=== PATIENT | male | born 1935 | race Caucasian/White ===

== ENCOUNTER 2017-06-29 16:02 | Emergency (ER) | payer MEDICARE, BC ==
[2017-06-29 16:51] LABS: HEMATOCRIT 38.9 % (37.9-51.0); HEMOGLOBIN 12.5 g/dL (13.5-17.0); MEAN CORPUSCULAR HEMOGLOBIN 27.6 pg (27.0-33.4); MEAN CORPUSCULAR HGB CONC 32.2 g/dL (32.0-36.0); MEAN CORPUSCULAR VOLUME 86 fl (80-97); PLATELET COUNT 107 10^3/uL (150-450); RED BLOOD COUNT 4.54 10^6/uL (4.35-5.55); RED CELL DISTRIBUTION WIDTH 16.5 % (11.5-14.0); WHITE BLOOD COUNT 9.9 10^3/uL (4.0-10.5)
[2017-06-29 16:55] LABS: VENOUS BLOOD BASE EXCESS -1.9 mmol/L; VENOUS BLOOD HCO3 22.2 mmol/L (20-32); VENOUS BLOOD PCO2 35.6 mmHg (35-63); VENOUS BLOOD PH 7.41 (7.30-7.42)
[2017-06-29 16:59] LABS: PROTHROMBIN TIME 26.5 SEC (11.4-15.4)
[2017-06-29 17:06] LABS: ALANINE AMINOTRANSFERASE 32 U/L (21-72); ALBUMIN 3.6 g/dL (3.5-5.0); ALKALINE PHOSPHATASE 74 U/L (38-126); ANION GAP 10 (5-19); ASPARTATE AMINO TRANSFERASE 35 U/L (17-59); BILIRUBIN,DIRECT 0.3 mg/dL (0.0-0.4); BILIRUBIN,TOTAL 1.4 mg/dL (0.2-1.3); BLOOD UREA NITROGEN 34 mg/dL (7-20); CALCIUM 8.9 mg/dL (8.4-10.2); CARBON DIOXIDE 24 mmol/L (22-30); CHLORIDE 108 mmol/L (98-107); GLUCOSE 133 mg/dL (75-110); LIPASE 113.9 U/L (23-300); POTASSIUM 3.4 mmol/L (3.6-5.0); SODIUM 141.9 mmol/L (137-145); TOTAL PROTEIN 5.8 g/dL (6.3-8.2)
[2017-06-29 17:13] LABS: ABSOLUTE LYMPHOCYTES# (MANUAL) 0.3 10^3/uL (0.5-4.7); ABSOLUTE MONOCYTES # (MANUAL) 0.1 10^3/uL (0.1-1.4); ABSOLUTE NEUTROPHILS# (MANUAL) 9.4 10^3/uL (1.7-8.2); ANISOCYTOSIS 1+; BAND NEUTROPHILS % (MANUAL) 3 % (3-5); BASOPHILS % (MANUAL) 1 % (0-2); EOSINOPHILS % (MANUAL) 0 % (0-6); HYPOCHROMASIA SLIGHT; LYMPHOCYTES % (MANUAL) 3 % (13-45); MONOCYTES % (MANUAL) 1 % (3-13); PLATELET COMMENT DECREASED; POLYCHROMASIA SLIGHT; SEGMENTED NEUTROPHILS % (MAN) 92 % (42-78); TOTAL CELLS COUNTED 100; TOXIC GRANULATION 1+; TOXIC VACUOLATION PRESENT
[2017-06-29 17:15] LABS: APPEARANCE,URINE CLOUDY; BILIRUBIN,URINE NEGATIVE (NEGATIVE); COLOR,URINE YELLOW; GLUCOSE, URINE NEGATIVE (NEGATIVE); KETONES,URINE NEGATIVE (NEGATIVE); LEUKOCYTE ESTERASE,URINE LARGE (NEGATIVE); NITRITE,URINE NEGATIVE (NEGATIVE); PROTEIN,URINE 30 mg/dL (NEGATIVE); URINE SPECIFIC GRAVITY 1.012; UROBILINOGEN,URINE NEGATIVE mg/dL (<2.0)
--- NOTE | 2017-06-29 17:35 | RADIOLOGY REPORT (SQ) ---
EXAM DESCRIPTION: CHEST PA/LAT COMPLETED DATE/TIME: 06/29/2017 5:20 pm REASON FOR STUDY: sob COMPARISON: Chest x-ray from [facility] dated 05/09/[address] dated 2. EXAM PARAMETERS: NUMBER OF VIEWS: two views TECHNIQUE: Digital Frontal and Lateral radiographic views of the chest acquired. RADIATION DOSE: NA LIMITATIONS: none FINDINGS: LUNGS AND PLEURA: Prominent interstitial densities, particularly in the left base. No lar ge pleural effusion. On the lateral view there is soft tissue in the posterior costophrenic sulcus. 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 MEDIASTINUM AND HILAR STRUCTURES: No masses or contour abnormalities. HEART AND VASCULAR STRUCTURES: Heart normal size. No evidence for failure. BONES: No acute findings. HARDWARE: Sternotomy wires and valvular prosthesis. External pacemaker wires. OTHER: No other significant finding. IMPRESSION: CHRONIC CHANGES ABOVE. CHRONIC INTERSTITIAL SCARRING. NO DEFINITE ACUTE FINDINGS. TECHNICAL DOCUMENTATION: JOB ID: [id number] [id number]- All Rights Reserved Reading location - IP/workstation name: [email or web address]
[2017-06-29] MEDS ORDERED: CEFTRIAXONE 1 GM/D5W RTU 1 GM/50 ML RTUPB IV ONE (17:51)
--- NOTE | 2017-06-29 18:17 | ER Document Report ---
ED General - General Chief Complaint: Nausea/Vomiting/Diarrhea Stated Complaint: WEAKNESS Time Seen by Provider: 06/29/17 16:06 TRAVEL OUTSIDE OF THE [place] IN LAST 30 DAYS: No - HPI Patient complains to provider of: Fever nausea vomiting diarrhea weakness Notes: Patient coming in with above-stated symptoms. Patient states started after he had lunch today. Patient otherwise states last 4024 hours he has felt fine. No chest pain abdominal pain. Patient resting comfortably upon my evaluation states that he feels better. Patient was given a gram of Tylenol by EMS patient to have a fever of 101. States he did receive flu vaccination this year denies any sick contacts recent antibiotics. Denies other complaints - Related Data Allergies/Adverse Reactions: gentamicin [Gentamicin] Allergy (Verified 04/26/11 10:05) Penicillins Allergy (Verified 04/26/11 10:05) Past Medical History - Social History Smoking Status: Never Smoker Chew tobacco use (# tins/day): No Frequency of alcohol use: None Drug Abuse: None Family History: Reviewed & Not Pertinent Patient has suicidal ideation: No Patient has homicidal ideation: No - Past Medical History Cardiac Medical History: Reports: Hx Hypercholesterolemia, Hx Hypertension Pulmonary Medical History: Reports: Hx Bronchitis Renal/ Medical History: Denies: Hx Peritoneal Dialysis - Immunizations Hx Diphtheria, Pertussis, Tetanus Vaccination: No Review of Systems - Review of Systems Constitutional: Fever EENT: No symptoms reported Cardiovascular: No symptoms reported Respiratory: No symptoms reported Gastrointestinal: Diarrhea, Nausea, Vomiting Genitourinary: No symptoms reported Male Genitourinary: No symptoms reported Musculoskeletal: No symptoms reported Skin: No symptoms reported Hematologic/Lymphatic: No symptoms reported Neurological/Psychological: No symptoms reported -: Yes All other systems reviewed and negative Physical Exam - Vital signs Vitals: Temp Resp BP Pulse Ox 99.4 F 24 H 147/64 H 94 06/29/17 16:27 06/29/17 16:27 06/29/17 16:27 06/29/17 16:27 Interpretation: Normal - General General appearance: Appears well, Alert - HEENT Head: Normocephalic, Atraumatic Eyes: Normal Pupils: PERRL - Respiratory Respiratory status: No respiratory distress Chest status: Nontender Breath sounds: Normal Chest palpation: Normal - Cardiovascular Rhythm: Regular Heart sounds: Normal auscultation Murmur: No - Abdominal Inspection: Normal Distension: No distension Bowel sounds: Normal Tenderness: Nontender Organomegaly: No organomegaly - Back Back: Normal, Nontender - Extremities General upper extremity: Normal inspection, Nontender, Normal color, Normal ROM , Normal temperature General lower extremity: Normal inspection, Nontender, Normal color, Normal ROM , Normal temperature, Normal weight bearing. No: Javier's sign - Neurological Neuro grossly intact: Yes Cognition: Normal Orientation: AAOx4 [place] Coma Scale Eye Opening: Spontaneous [place] Coma Scale Verbal: Oriented [place] Coma Scale Motor: Obeys Commands [place] Coma Scale Total: 15 Speech: Normal Motor strength normal: LUE, RUE, LLE, RLE Sensory: Normal - Psychological Associated symptoms: Normal affect, Normal mood - Skin Skin Temperature: Warm Skin Moisture: Dry Skin Color: Normal Course - Re-evaluation Re-evalutation: 06/29/17 22:38 Laboratory studies showed that patient had a urinary tract infection. Patient otherwise feeling better after IV fluids afebrile. Patient was given a dose of Rocephin tolerated well. At this time patient was to be a good candidate for outpatient management. Still possible underlying viral etiology for some of the nausea vomiting diarrhea. Abdomen still nontender no rebound or guarding. 06/29/17 22:39 Family agrees with plan of discharge home. - Vital Signs Vital signs: Temp Pulse Resp BP Pulse Ox 98.9 F 18 131/74 H 95 06/29/17 19:19 06/29/17 19:19 06/29/17 19:19 06/29/17 19:19 - Laboratory Result Diagrams: 06/29/17 16:30 06/29/17 16:30 Laboratory results interpreted by me: 06/29/17 06/29/17 06/29/17 16:30 16:30 16:30 Hgb 12.5 L RDW 16.5 H Plt Count 107 L Seg Neuts % (Manual) 92 H Lymphocytes % (Manual) 3 L Monocytes % (Manual) 1 L Abs Neuts (Manual) 9.4 H Abs Lymphs (Manual) 0.3 L PT 26.5 H Potassium 3.4 L Chloride 108 H BUN 34 H Est GFR (Non-Af Amer) 58 L Glucose 133 H POC Glucose Total Bilirubin 1.4 H Total Protein 5.8 L Urine Protein Urine Blood Ur Leukocyte Esterase 06/29/17 06/29/17 16:41 16:48 Hgb RDW Plt Count Seg Neuts % (Manual) Lymphocytes % (Manual) Monocytes % (Manual) Abs Neuts (Manual) Abs Lymphs (Manual) PT Potassium Chloride BUN Est GFR (Non-Af Amer) Glucose POC Glucose 134 H Total Bilirubin Total Protein Urine Protein 30 H Urine Blood LARGE H Ur Leukocyte Esterase LARGE H Discharge - Discharge Clinical Impression: Nausea vomiting and diarrhea Urinary tract infection Qualifiers: Urinary tract infection type: acute cystitis Hematuria presence: with hematuria Qualified Code(s): N30.01 - Acute cystitis with hematuria Fever Qualifiers: Fever type: unspecified Qualified Code(s): R50.9 - Fever, unspecified Condition: Good Disposition: HOME, SELF-CARE Instructions: Cephalexin ([facility]), Diarrhea, Nonspecific ([facility]), Fever ([facility]), Urinary Tract Infection ([facility]), Vomiting ([facility]) Additional Instructions: Your laboratory studies today 2 signs of urinary tract infection. This may be the reason why you are having some your symptoms as weakness also because of your fever. We will start you on antibiotic called Rocephin here in the ER and prescribed the antibiotics Keflex. Rocephin will last for 24 hours he would not need any further antibiotics until tomorrow. Please be aware that all antibiotics will affect your Coumadin level or your INR because of this I would highly recommend following up with your doctor for further evaluation next week Tuesday. Return to ER if symptoms worsen please drink plenty water stay hydrated please rest. Prescriptions: Cephalexin Monohydrate [Keflex 500 mg Capsule] 500 mg PO Q6H 7 Days capsule Ondansetron [Zofran Odt] 4 mg PO Q6 PRN #30 tab.rapdis PRN Reason: For Nausea/Vomiting Referrals: JUDSON RUFFIN PA-C [Primary Care Provider] - Follow up in 3-5 days
[2017-06-29] MEDS ORDERED: ONDANSETRON ODT 4 MG TAB (6 TAB/ER DISP) PO PRN (18:35)
[2017-06-29] MEDS ORDERED: CEFTRIAXONE SODIUM 1,000 MG in NORMAL SALINE 100 ML IV ONE (18:45)
[2017-06-29 19:54] VITALS: BP 131/74
--- NOTE | 2017-06-29 23:47 | EKG REPORT ---
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 DISC USSED WITH DR PARSONS. ST ELEVATION IN AVR, V1,2 WAS SAID TO BE PRE-EXISTING, PT NOT HAVING CHEST PA INS. PT UNDER CARE OF DR GRAY IN [facility] : Confirmed by: Michael Zhang MD 29-Jun-2017 18:54:32
== END 2017-06-29 19:58 | disposition home or self-care (01) ==
LOC: ER 16:02
DX: N30.01 Acute cystitis with hematuria (principal); R11.2 Nausea with vomiting, unspecified; R19.7 Diarrhea, unspecified; R50.9 Fever, unspecified; R53.1 Weakness
CPT/HCPCS: 93005; 99285; 96361; 96374; 96375; 36415; 87040; 87086; 82962; 83690; 83735; 85025; 85610; 87088; 80053; 81001; 84484; 87186; 82803; 83605; 71046; 93010; J0696

== ENCOUNTER → 2018-05-02 | Outpatient (CLI) | payer MEDICARE, BC ==
[2018-05-02 11:38] LABS: PROTHROMBIN TIME 13.7 SEC (11.4-15.4)
== END ==
LOC: OD 10:43
PROVIDERS: ATTEND Dentist Oral and Maxillofacial Surgery
DX: I48.91 Unspecified atrial fibrillation (principal)
CPT/HCPCS: 36415; 85610

== ENCOUNTER 2019-11-25 10:13 | Emergency (ER) | payer MEDICARE, BC ==
--- NOTE | 2019-11-25 10:21 | ER Document Report ---
ED Medical Screen (RME) - General Chief Complaint: Fall Injury Stated Complaint: FALL Time Seen by Provider: 11/25/19 10:18 Primary Care Provider: OBI WILLS DDS [Primary Care Provider] - Follow up as needed Mode of Arrival: Medic Information source: Patient Notes: 84-year-old male presented to ED for fall hitting head injury and head neck on blood thinners. Patient is alert and oriented answering questions appropriately. He did come by EMS. Will get head and neck CT and basic labs. I have greeted and performed a rapid initial assessment of this patient. A comprehensive ED assessment and evaluation of the patient, analysis of test results and completion of medical decision making process will be conducted by an additional ED providers. TRAVEL OUTSIDE OF THE [place] IN LAST 30 DAYS: No - Related Data Allergies/Adverse Reactions: gentamicin [Gentamicin] Allergy (Verified 04/26/11 10:05) Penicillins Allergy (Verified 04/26/11 10:05) Past Medical History - Past Medical History Cardiac Medical History: Reports: Hx Hypercholesterolemia, Hx Hypertension Pulmonary Medical History: Reports: Hx Bronchitis Renal/ Medical History: Denies: Hx Peritoneal Dialysis - Immunizations Hx Diphtheria, Pertussis, Tetanus Vaccination: No Doctor's Discharge - Discharge Referrals: OBI WILLS DDS [Primary Care Provider] - Follow up as needed
[2019-11-25 10:47] LABS: ABSOLUTE EOSINOPHILS # (AUTO) 0.2 10^3/uL (0.0-0.6); ABSOLUTE LYMPHOCYTES (AUTO) 0.6 10^3/uL (0.5-4.7); ABSOLUTE MONOCYTES (AUTO) 0.5 10^3/uL (0.1-1.4); ABSOLUTE NEUT (AUTO) 3.3 10^3/uL (1.7-8.2); BASOPHILS % (AUTO) 0.9 % (0-2); EOSINOPHILS % (AUTO) 3.6 % (0-6); HEMATOCRIT 35.7 % (37.9-51.0); HEMOGLOBIN 11.6 g/dL (13.5-17.0); LYMPHOCYTES % (AUTO) 13.4 % (13-45); MEAN CORPUSCULAR HEMOGLOBIN 26.6 pg (27.0-33.4); MEAN CORPUSCULAR HGB CONC 32.5 g/dL (32.0-36.0); MEAN CORPUSCULAR VOLUME 82 fl (80-97); MONOCYTES % (AUTO) 10.7 % (3-13); PLATELET COUNT 140 10^3/uL (150-450); RED BLOOD COUNT 4.35 10^6/uL (4.35-5.55); RED CELL DISTRIBUTION WIDTH 18.5 % (11.5-14.0); SEGMENTED NEUTROPHILS % (AUTO) 71.4 % (42-78); TOTAL CELLS COUNTED % (AUTO) 100 %; WHITE BLOOD COUNT 4.6 10^3/uL (4.0-10.5)
[2019-11-25 10:48] LABS: INTERNATIONAL RATION (INR) 2.22; PROTHROMBIN TIME 24.6 SEC (11.4-15.4)
[2019-11-25 10:49] LABS: PARTIAL THROMBOPLASTIN TIME 39.4 SEC (23.5-35.8)
[2019-11-25 10:59] LABS: ALBUMIN 3.8 g/dL (3.5-5.0); ALKALINE PHOSPHATASE 60 U/L (38-126); ANION GAP 6 (5-19); ASPARTATE AMINO TRANSFERASE 25 U/L (17-59); BILIRUBIN,TOTAL 0.8 mg/dL (0.2-1.3); BLOOD UREA NITROGEN 26 mg/dL (7-20); CALCIUM 8.7 mg/dL (8.4-10.2); CARBON DIOXIDE 25 mmol/L (22-30); CHLORIDE 105 mmol/L (98-107); GLUCOSE 129 mg/dL (75-110); POTASSIUM 4.1 mmol/L (3.6-5.0); TOTAL PROTEIN 6.3 g/dL (6.3-8.2)
--- NOTE | 2019-11-25 11:10 | RADIOLOGY REPORT (SQ) ---
EXAM DESCRIPTION: CT HEAD WITHOUT IMAGES COMPLETED DATE/TIME: 11/25/2019 11:01 am REASON FOR STUDY: fall pain in head and neck on blood thinners COMPARISON: None. TECHNIQUE: Axial images acquired through the brain without intravenous contrast. Images reviewed wi th bone, brain and subdural windows. Additional sagittal and coronal reconstructions were generated. Images stored on PACS. All CT scanners at this facility use dose modulation, iterative reconstruction, and/or weight based d osing when appropriate to reduce radiation dose to as low as reasonably achievable (ALARA). [facility]: Dose Right [facility]: CareDose [facility]: Dose Right [facility]: Teradose 4D [facility]: Smart [employer] RADIATION DOSE: CT Rad equipment meets quality standard of care and radiation dose reduction techniq ues were employed. CTDIvol: 53.2 mGy. DLP: 991 mGy-cm.mGy. LIMITATIONS: None. FINDINGS: VENTRICLES: Prominent. CEREBRUM: No masses. No hemorrhage. No midline shift. 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 A reas of low density in the white matter most likely due to chronic micro-vascular ischemic change. N o evidence for acute infarction. CEREBELLUM: No masses. No hemorrhage. No alteration of density. No evidence for acute infarction. EXTRAAXIAL SPACES: Age-related involutional change. No fluid collections. No masses. ORBITS AND GLOBE: No intra- or extraconal masses. Normal contour of globe without masses. CALVARIUM: No fracture. PARANASAL SINUSES: No fluid or mucosal thickening. SOFT TISSUES: No mass or hematoma. OTHER: No other significant finding. IMPRESSION: Chronic ischemic changes. EVIDENCE OF ACUTE STROKE: NO. TECHNICAL DOCUMENTATION: JOB ID: [id number] Quality ID # [id number]: Final reports with documentation of one or more dose reduction techniques (e.g., Au tomated exposure control, adjustment of the mA and/or kV according to patient size, use of iterative reconstruction technique) 2010 [employer]- All Rights Reserved Reading location - IP/workstation name: [email or web address]
--- NOTE | 2019-11-25 11:15 | RADIOLOGY REPORT (SQ) ---
EXAM DESCRIPTION: CT CERVICAL SPINE WITHOUT IMAGES COMPLETED DATE/TIME: 11/25/2019 11:01 am REASON FOR STUDY: fall pain in head and neck on blood thinners COMPARISON: None. TECHNIQUE: Axial images acquired through the cervical spine without intravenous contrast. Images re viewed with lung, soft tissue and bone windows. Reconstructed coronal and sagittal MPR images review ed. Images stored on PACS. All CT scanners at this facility use dose modulation, iterative reconstruction, and/or weight based d osing when appropriate to reduce radiation dose to as low as reasonably achievable (ALARA). [facility]: Dose Right [facility]: CareDose [facility]: Dose Right [facility]: Teradose 4D [facility]: [employer] RADIATION DOSE: CT Rad equipment meets quality standard of care and radiation dose reduction techniq ues were employed. CTDIvol: 9.1 mGy. DLP: 213 mGy-cm. mGy. LIMITATIONS: None. FINDINGS: ALIGNMENT: Anatomic. MINERALIZATION: Normal. VERTEBRAL BODIES: No fractures or dislocation. DISCS: Multilevel disc space narrowing with osteophytes. FACETS, LATERAL MASSES, POSTERIOR ELEMENTS: Facet arthropathy. No fractures. No dislocation. No ac clark findings. HARDWARE: None in the spine. VISUALIZED RIBS: No fractures. LUNG APICES AND SOFT TISSUES: No significant or acute findings. OTHER: No other significant finding. IMPRESSION: CHRONIC DEGENERATIVE CHANGES. NO ACUTE FINDINGS. TECHNICAL DOCUMENTATION: JOB ID: [id number] Quality ID # [id number]: Final reports with documentation of one or more dose reduction techniques (e.g., Au tomated exposure control, adjustment of the mA and/or kV according to patient size, use of iterative reconstruction technique) 2010 [employer]- All Rights Reserved Reading location - IP/workstation name: [email or web address]
[2019-11-25] MEDS ORDERED: LIDOCAINE 2% JELLY 30 ML TUBE TOP ONE (11:57)
[2019-11-25 12:02] LABS: INTERNATIONAL RATION (INR) 2.24; PARTIAL THROMBOPLASTIN TIME 37.5 SEC (23.5-35.8); PROTHROMBIN TIME 24.8 SEC (11.4-15.4)
[2019-11-25 12:05] LABS: CREATINE KINASE 122 U/L (55-170)
[2019-11-25 12:07] LABS: ALCOHOL < 10 mg/dL (NONE DETECTED)
[2019-11-25] MEDS ORDERED: LIDOCAINE 4%/TETRACAINE 0.5%/EPI 0.18% 5 ML TOPICAL SOLN TOP ONE (12:16)
[2019-11-25 12:18] LABS: NT PRO BNP 2580 pg/mL (<450); TROPONIN I < 0.012 ng/mL
--- NOTE | 2019-11-25 12:38 | RADIOLOGY REPORT (SQ) ---
EXAM DESCRIPTION: CHEST SINGLE VIEW IMAGES COMPLETED DATE/TIME: 11/25/2019 12:23 pm REASON FOR STUDY: trauma/fall COMPARISON: Chest x-ray 06/29/2017, 04/26/2011 EXAM PARAMETERS: NUMBER OF VIEWS: One view. TECHNIQUE: Single frontal radiographic view of the chest acquired. RADIATION DOSE: NA LIMITATIONS: None. FINDINGS: LUNGS AND PLEURA: No consolidation, pneumothorax or pleural effusion. MEDIASTINUM AND HILAR STRUCTURES: No masses. Contour normal. HEART AND VASCULAR STRUCTURES: The heart is enlarged. There is no overt vascular congestion. BONES: Remote fractures at the left clavicle and left ribs. HARDWARE: Mediastinotomy wires and cardiac valve prosthesis are present. IMPRESSION: Cardiomegaly. Otherwise, no acute radiographic finding in the chest. TECHNICAL DOCUMENTATION: JOB ID: [id number] [place]-64 2010 [employer]- All Rights Reserved Reading location - IP/workstation name: [email or web address]
--- NOTE | 2019-11-25 13:38 | ER Document Report ---
Entered by BRET MONACO SCRIBE 11/25/19 1201 Acting as scribe for:MARTINA SCHREIBER MD ED General - General Chief Complaint: Fall Injury Stated Complaint: FALL Time Seen by Provider: 11/25/19 10:18 Primary Care Provider: OBI WILLS DDS [ACTIVE STAFF] - Follow up as needed Mode of Arrival: Medic Information source: Patient Notes: This 84 year old male patient presents to the emergency department today with a mechanical fall prior to arrival. Patient states he was bending over reaching for a paper and he fell forward. Patient denies dizziness or loss of consciousness. Patient states he is on blood thinners. Denies neck pain, hip pain, or pain in bilateral UE. TRAVEL OUTSIDE OF THE [place] IN LAST 30 DAYS: No - Related Data Allergies/Adverse Reactions: amiodarone Allergy (Verified 11/25/19 10:22) gentamicin [Gentamicin] Allergy (Verified 11/25/19 10:22) Penicillins Allergy (Verified 11/25/19 10:22) Past Medical History - General Information source: Patient - Social History Smoking Status: Former Smoker Cigarette use (# per day): No Family History: Reviewed & Not Pertinent Patient has homicidal ideation: No - Past Medical History Cardiac Medical History: Reports: Hx Hypercholesterolemia, Hx Hypertension Pulmonary Medical History: Reports: Hx Bronchitis - Immunizations Hx Diphtheria, Pertussis, Tetanus Vaccination: No Review of Systems - Review of Systems Constitutional: No symptoms reported EENT: No symptoms reported Cardiovascular: See HPI. denies: Dizziness Respiratory: No symptoms reported Gastrointestinal: No symptoms reported Genitourinary: No symptoms reported Male Genitourinary: No symptoms reported Musculoskeletal: See HPI, Other - No hip pain. denies: Neck pain Skin: No symptoms reported Hematologic/Lymphatic: No symptoms reported Neurological/Psychological: See HPI. denies: Lost consciousness -: Yes All other systems reviewed and negative Physical Exam - Vital signs Vitals: Temp Pulse Resp BP Pulse Ox 99.1 F 72 20 127/61 H 97 11/25/19 10:22 11/25/19 10:22 11/25/19 10:22 11/25/19 10:22 11/25/19 10:22 - General General appearance: Appears well, Alert - HEENT Eyes: Normal Extraocular movements intact: Yes Pupils: PERRL Notes: Superficial abrasion on forehead 7x4 cm. No active bleeding. Normal ROM of neck and without tenderness. - Respiratory Respiratory status: No respiratory distress Chest status: Nontender Breath sounds: Normal Chest palpation: Normal. No: Wounds - Cardiovascular Rhythm: Regular Heart sounds: Normal auscultation Murmur: No - Abdominal Inspection: Normal, Other - Soft Distension: No distension Bowel sounds: Normal Tenderness: Nontender - Extremities General upper extremity: Normal inspection, Nontender, Normal ROM. No: Edema Notes: Superficial abrasions on knees bilaterally, both 8x3 cm. 5x2 cm linear superficial abrasion on right lower leg. Normal ROM of bilateral lower extremities. Hip is non-tender with palpation and normal ROM. - Neurological Neuro grossly intact: Yes Cognition: Normal Orientation: AAOx4 Speech: Normal Sensory: Normal - Psychological Associated symptoms: Normal affect, Normal mood - Skin Skin Temperature: Warm Skin Moisture: Dry Skin Color: Normal Course - Re-evaluation Re-evalutation: 11/25/19 13:23 Patient resting comfortably not showing any signs of distress at this time. - Vital Signs Vital signs: Temp Pulse Resp BP Pulse Ox 99.1 F 72 20 127/61 H 97 11/25/19 10:22 11/25/19 10:22 11/25/19 10:22 11/25/19 10:22 11/25/19 10:22 11/25/19 13:24 Vital signs stable - Laboratory Result Diagrams: 11/25/19 10:30 11/25/19 10:30 Laboratory results interpreted by me: 11/25/19 11/25/19 11/25/19 10:30 10:30 10:30 Hgb 11.6 L Hct 35.7 L MCH 26.6 L RDW 18.5 H Plt Count 140 L PT 24.6 H APTT 39.4 H Sodium 136.1 L BUN 26 H Creatinine 1.28 H Est GFR (MDRD) Non-Af 54 L Glucose 129 H Lactic Acid NT-Pro-B Natriuret Pep 11/25/19 11/25/19 11/25/19 10:30 11:40 11:40 Hgb Hct MCH RDW Plt Count PT 24.8 H APTT 37.5 H Sodium BUN Creatinine Est GFR (MDRD) Non-Af Glucose Lactic Acid 0.6 L NT-Pro-B Natriuret Pep 2580 H 11/25/19 13:24 Laboratory exam shows insignificant mild elevations. Patient has a creatinine of 1.2 patient is on Coumadin with a pro time of 24.6 hemoglobin is 11.6 with a hematocrit 35.7 BNP is 2580 - Diagnostic Test Radiology reviewed: Image reviewed, Reports reviewed Radiology results interpreted by me: 11/25/19 13:26 Chest x-ray shows cardiomegaly no acute infiltrates. No overt failure. CT scan of head without contrast showed no evidence of trauma no bleed no skull fracture no swelling. CT scan cervical spine noncontrast shows no acute fracture or subluxation. - EKG Interpretation by Me Additional EKG results interpreted by me: 11/25/19 13:27 Twelve-lead EKG shows normal sinus rhythm, right bundle branch block, left ventricular hypertrophy with re-pole changes otherwise no acute ST elevation. Procedures - Laceration/Wound Repair Right Knee Time completed: 13:20 Wound length (cm): 28 Wound's Depth, Shape: Superficial, Irregular, Other - Abrasions with minor skin tears over the forehead both knees and the right lower extremity. Laceration pre-procedure: Sterile drapes applied, Other - Sterile water cleansing of wound sites Anesthetic type: Other - Lidocaine gel topical was applied to each of the wound sites prior to debridement Wound Debrided: Minimal Wound Repaired With: Dermabond Post-procedure wound care: Sterile dressing applied Discharge - Discharge Clinical Impression: Accident due to mechanical fall without injury, Abrasion, multiple sites Condition: Stable Disposition: HOME, SELF-CARE Additional Instructions: Abrasions of the Face A scraping injury of the face can result in scarring. While not as prone to infection as abrasions elsewhere, a facial abrasion requires careful care to minimize scar. Usually the abrasions cannot be dressed. Standard treatment is to apply a thin coating of an antibiotic ointment to the scrapes frequently (two or three times a day) until the abrasions are healed. Wash the wound daily with a mild soap (like Phisoderm) to remove excess crusting and debris. Stay away from dirt and irritating chemicals. Complete healing may take anywhere from ten days to a month. The healing time depends on the depth of the abrasion and on the amount of crushing of underlying tissues which occurred. Once healing is complete, use a sunscreen on the area for about six months. If any signs of infection occur (swelling, redness, increasing tenderness, red streaks, profuse purulent drainage from the abrasion, tender lumps in the neck on the side of the abrasion, or fever), see the doctor immediately. [facility] [address] [place] [id number] Wound Care After I&D 1. If an antibiotic is prescribed please try to take on a regular schedule as this may help resolve your infection faster. 2. Pain will usually be very well managed with [id number] medications such as Tylenol, Advil, or Aleve. If a narcotic prescription is used you cannot take this and drive or operate dangerous machinery while on this medication. 3. If bleeding occurs postoperatively apply firm pressure over the site for 10 minutes and it will usually stop. If it persists call the office and return during office hours or go to the emergency room in the evenings or weekends. 4. You may shower the next day. It is usually best to remove the outer dressing before the shower. Then gently pull out the gauze packing inside the abscess cavity. Do not moisten prior to removal. Wash any soap out of the wound daily. 5. After your shower and the packing has been removed you should gently clean the abscess cavity with 2-3 Q-tips and a solution of saline and peroxide that was sent home with you. If you did not receive this solution, you can mix peroxide and water as the peroxide will clean even tap water of any bacteria. Insert the Q-tip into the solution and then gently into the abscess cavity to keep the skin edges apart, gently swabbing using a total of 2- 3 Q-tips. This helps to keep the skin open to allow the abscess to heal from the inside out. If the skin heals too fast the abscess will reoccur as the skin closes over an open hole. Repack with damp gauze with saline and peroxide. No wet part should touch the skin edge. Cover the site with a gauze dressing and tape at first after daily wound care. When the drainage is less you may switch over to band aids if more convenient. 6. When only the skin edges are left to heal you may clean the surface with the solution on a cotton ball. 7. Schedule a follow up to monitor healing. In some cases an excision of the area may be needed in the future to decrease risk of recurrence. 8. If any problems or questions call during office hours [phone]. If at night or on the weekend you may call [facility] [phone] and ask for the surgicalist supply controller. Recommend Tylenol as needed if if needed for pain. Also keep wound site clean and dry do not apply any antibiotic ointment over the Dermabond at wound sites. The Dermabond eventually will peel off over time. Follow-up with your primary care physician for further follow-up and evaluations. Prescriptions: Clindamycin HCl 300 mg PO BID #14 capsule Referrals: OBI WILLS DDS [ACTIVE STAFF] - Follow up as needed I personally performed the services described in the documentation, reviewed and edited the documentation which was dictated to the scribe in my presence, and it accurately records my words and actions.
[2019-11-25 13:52] VITALS: BP 155/77
--- NOTE | 2019-11-25 15:02 | EKG REPORT ---
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
== END 2019-11-25 13:55 | disposition home or self-care (01) ==
LOC: ER 10:13
PROC: 0HQKXZZ Repair Right Lower Leg Skin, External Approach (ICD-10-PCS; principal; 2019-11-25)
DX: S81.011A Laceration without foreign body, right knee, initial encounter (principal); S00.81XA Abrasion of other part of head, initial encounter; S09.90XA Unspecified injury of head, initial encounter; S19.9XXA Unspecified injury of neck, initial encounter; I45.10 Unspecified right bundle-branch block; I51.7 Cardiomegaly; W19.XXXA Unspecified fall, initial encounter; Z79.01 Long term (current) use of anticoagulants; Z88.8 Allergy status to other drugs, medicaments and biological substances; Z88.0 Allergy status to penicillin; Z87.891 Personal history of nicotine dependence; I10 Essential (primary) hypertension
CPT/HCPCS: 12006; 93005; 99284; 36415; 80307; 82550; 83605; 83690; 85025; 85610; 85730; 80053; 84484; 83880; 71045; 70450; 72125; 93010; J3490